=== PATIENT | female | born 1990 | race Caucasian/White ===

== ENCOUNTER 2019-08-17 10:04 | Emergency (ER) | payer OTHER ==
[2019-08-17] MEDS ORDERED: LORazepam INJ* 2 MG/ML 1 ML VIAL IV PUSH ONE (10:19)
[2019-08-17] MEDS ORDERED: Lorazepam PYXIS KEY PRN (10:19)
[2019-08-17] MEDS ORDERED: NS 0.9% 1000 ML** 1,000 ML IV ONE (10:19)
--- NOTE | 2019-08-17 10:19 | ED ---
Psychiatric Complaint - HPI Summary HPI Summary: This pt is a 29 Y/O F presenting to [facility], accompanied by her mother as a [id number] with a CC of increased anxiety since 08/10/19. She states that she was recently increased to 30 mgs of Zoloft and was prescribed Ativan to help sleep. She states that the Ativan would give her dry mouth and was intense. She states that the Ativan was not helping and she had an increase in insomnia and anxiety. She states that her eyebrows kept twitching and she had muscle tension while in bed before sleep and after waking up. She states that 08/15/19 after taking her Zoloft while driving to [place] she felt nauseas and became car sick. She states that since 08/15/19 she has had photophobia and has had dry skin. She states that last night she slept for an hour and started having increased feelings of urination, nausea, headaches, and photophobia. Currently she states that she has been having increasing twitches since the onset. She states that she took her Ativan once a day. She was prescribed 1 mg. Her headaches have been present for a week. She denies any fevers, chills. Sore throats, and SI or HI. She states that she has no alleviating or aggravating symptoms. She states that she has a PMHx of depression and anxiety. - History Of Current Complaint Chief Complaint: EDPsychosocial Time Seen by Provider: 08/17/19 10:06 Accompanied By: mother Hx Obtained From: Patient, Family/Juice Scaleman - mother Hx Last Menstrual Period: NOW ?: No Onset/Duration: Sudden Onset, Lasting Weeks - 1, Worse Since - onset Timing: Constant Severity Initially: Moderate Severity Currently: Moderate Character: Anxious Aggravating Factor(s): Nothing Alleviating Factor(s): Nothing Associated Signs And Symptoms: Positive: Sleep Disturbance - states increased insomnia Has Suicidal: Denies: Thoughts, With A Plan Has Homicidal: Denies: Thoughts, With A Plan Ingestion History: Type/Name Of Drug - Started Zoloft and Ativan recently - Allergies/Home Medications Allergies/Adverse Reactions: Allergies Allergy/AdvReac Type Severity Reaction Status Date / Time No Known Allergies Allergy Verified 08/17/19 10:23 Home Medications: Home Medications Sertraline* [Zoloft*] 50 mg PO DAILY 08/17/19 [History Confirmed 08/17/19] Zolpidem Tartrate 5 mg PO BEDTIME PRN 08/17/19 [History Confirmed 08/17/19] PMH/Surg Hx/FS Hx/Imm Hx Previously Healthy: Yes Endocrine/Hematology History: Denies: Hx Diabetes Cardiovascular History: Denies: Hx Hypertension, Hx Pacemaker/ICD History: Denies: Hx Renal Disease Musculoskeletal History: Denies: Hx Rheumatoid Arthritis, Hx Osteoporosis Sensory History: Denies: Hx Hearing Aid Psychiatric History: Reports: Hx Anxiety, Hx Depression Denies: Hx Panic Disorder - Cancer History Hx Chemotherapy: No Hx Radiation Therapy: No - Surgical History Surgical History: Yes Surgery Procedure, Year, and Place: WISDOM TEETH - Immunization History Immunizations Up to Date: Yes Infectious Disease History: Reports: Hx Shingles Denies: History Other Infectious Disease - Family History Known Family History: Positive: Other - father has T cell disease - Social History Occupation: Employed Full-time Lives: With Family Alcohol Use: None Hx Substance Use: No Substance Use Type: Reports: None Hx Tobacco Use: No Smoking Status (MU): Never Smoked Tobacco Household Exposure: No Review of Systems Negative: Fever, Chills Positive: Photophobia Negative: Sore Throat Positive: Vomiting, Nausea Neurological: Other - twitching Positive: Headache Psychological: Other - NEGATIVE: SI and HI Positive: Anxious All Other Systems Reviewed And Are Negative: Yes Physical Exam - Summary Physical Exam Summary: Constitutional: Well-developed, Well-nourished, Alert. (-) Distressed Skin: Warm, Dry HENT: Normocephalic; Atraumatic Eyes: Conjunctiva normal Neck: Musculoskeletal ROM normal neck. (-) JVD, (-) Stridor, (-) Tracheal deviation Cardio: Rhythm regular, rate normal, Heart sounds normal; Intact distal pulses; The pedal pulses are 2+ and symmetric. Radial pulses are 2+ and symmetric. Pulmonary/Chest wall: Effort normal. (-) Respiratory distress, (-) Wheezes, (-) Rales Abd: Soft, (-) tenderness, (-) Distension, (-) Guarding, (-) Rebound Musculoskeletal: (-) Edema Neuro: Alert, Oriented x3, resting tremor, no focal deficits Psych: Mood and affect Normal, appears anxious Triage Information Reviewed: Yes Vital Signs On Initial Exam: Temp Pulse Resp BP SpO2 FiO2 Vital Signs Reviewed: Yes Procedures - Sedation Patient Received Moderate/Deep Sedation with Procedure: No Diagnostics - Laboratory Result Diagrams: 08/17/19 10:26 08/17/19 10:26 Lab Statement: Any lab studies that have been ordered have been reviewed, and results considered in the medical decision making process. Course/Dx - Course Course Of Treatment: This pt is a 29 Y/O F presenting to [facility] with a CC of increased anxiety since 08/10/19. She states that she was recently increased to 30 mgs of Zoloft and was prescribed Ativan to help sleep. She states that the Ativan would give her dry mouth and was intense. She states that the Ativan was not helping and she had an increase in insomnia and anxiety. She states that her eyebrows kept twitching and she had muscle tension while in bed before sleep and after waking up. She states that 08/15/19 after taking her Zoloft while driving to [place] she felt nauseas and became car sick. She states that since 08/15/19 she has had photophobia and has had dry skin. Her PE found that she had restless tremors, no focal deficits, and appears anxious. per Dr. Perez , psychiatrist, the pt is sutable for discharge. she will follow up with her PCP and obtain a psychiatrist close by to help manage her medications. She was Dx with benzodiazepine withdrawl and anxiety. - Differential Dx/Clinical Impression Provider Diagnosis: Benzodiazepine withdrawal, Anxiety - Physician Notifications Discussed Care Of Patient With: Woody Perez Time Discussed With Above Provider: 14:57 Instructed by Provider To: Other - pt is sutable for discharge. she will follow up with her PCP and obtain a psychiatrist close by to help manage her medications. She was Dx with benzodiazepine withdrawl and anxiety. Discharge ED - Discharge Plan Disposition: HOME Patient Education Materials: Anxiety (ED) Referrals: Tabatha Yost MD [Primary Care Provider] - - Billing Disposition and Condition Disposition: Home - Attestation Statements Document Initiated by Scribe: Yes Documenting Scribe: Guille Pham Provider For Whom Scribe is Documenting (Include Credential): Dick Robb DO Scribe Attestation: Guille Casanova, scribed for Dick Robb DO on 08/18/19 at 0735. Scribe Documentation Reviewed: Yes Provider Attestation: The documentation as recorded by the scribe, Guille Pham accurately reflects the service I personally performed and the decisions made by me, Dick Robb, Status of Scribe Document: Viewed
[2019-08-17] MEDS ORDERED: Bacitracin OINTMENT* 0.5% 0.5 oz TUBE TOPICAL ONE (10:30)
[2019-08-17 10:36] LABS: ABS Lymphocytes 2.6 10^3/ul (1.0-4.8); ABS Monocytes 0.6 10^3/ul (0-0.8); ABS Neutrophils 3.8 10^3/ul (1.5-7.7); Eosinophil % 0.4 %; Hematocrit 43 % (35-47); Hemoglobin 14.9 g/dL (12.0-16.0); Mean Corpuscular HGB Conc 34 g/dL (31-36); Mean Corpuscular Hemoglobin 32 pg (27-31); Mean Corpuscular Volume 94 fL (80-97); Mean Platelet Volume 8.3 fL (7.4-10.4); Nucleated Red Blood Cells % 0.1; Platelet Count 279 10^3/uL (150-450); Red Blood Count 4.62 10^6 /uL (3.70-4.87); Red Cell Distribution Width 14 % (10-15)
[2019-08-17 10:50] LABS: ALT 16 U/L (7-52); AST 26 U/L (13-39); Albumin 4.9 g/dL (3.2-5.2); Albumin/Globulin Ratio 1.8 (1-3); Alkaline Phosphatase 104 U/L (34-104); Anion Gap 9 mmol/L (2-11); BUN/Creatinine Ratio 16.7 (8-20); Blood Urea Nitrogen 11 mg/dL (6-24); CO2 Carbon Dioxide 26 mmol/L (22-32); Calcium 9.7 mg/dL (8.6-10.3); Chloride 101 mmol/L (101-111); EGFR African American 127.2 (>60); EGFR Non-African American 105.2 (>60); Globulin 2.7 g/dL (2-4); Glucose 112 mg/dL (70-100); Magnesium 1.9 mg/dL (1.9-2.7); Potassium 3.6 mmol/L (3.5-5.0); Sodium 136 mmol/L (135-145); Total Protein 7.6 g/dL (6.4-8.9)
[2019-08-17 11:42] LABS: Acetaminophen < 15 mcg/mL; Alcohol < 10 mg/dL (<10); Salicylate < 2.50 mg/dL (<30)
[2019-08-17 11:57] LABS: TSH (Thyroid Stimulating Horm) 1.34 mcIU/mL (0.34-5.60)
[2019-08-17 12:59] LABS: Urine Appearance Cloudy; Urine Bilirubin Negative (Negative); Urine Blood Negative (Negative); Urine Color Yellow; Urine Glucose Negative (Negative); Urine Ketones Trace (Negative); Urine Nitrite Negative (Negative); Urine Protein Negative (Negative); Urine Specific Gravity 1.008 (1.010-1.030); Urine Urobilinogen Negative (Negative)
[2019-08-17 13:27] LABS: Urine Benzodiazepine Screen None Detected (None Detect); Urine Opiates Screen None Detected (None Detect)
[2019-08-17 15:48] VITALS: BP 99/67
== END 2019-08-17 15:45 | disposition home or self-care (01) ==
LOC: ED 10:04
DX: F41.9 Anxiety disorder, unspecified (principal); F15.93 Other stimulant use, unspecified with withdrawal; F32.9 Major depressive disorder, single episode, unspecified; Z79.899 Other long term (current) drug therapy
CPT/HCPCS: 36415; 80053; 80307; 80320; 80329; 81003; 83735; 84443; 85025; 99284; A9270-GY; G0480